=== PATIENT | female | born 1985 | race African-American/Black ===

== ENCOUNTER 2017-01-04 13:15 | Emergency (ER) | payer MEDICAID ==
[~2017-01-04] VITALS: Ht 152.4 cm; Wt 57.0 kg
[2017-01-04 19:05] VITALS: BP 121/85
== END 2017-01-04 19:20 | disposition home or self-care (01) ==
LOC: ER 14:31
DX: M79.652 Pain in left thigh (principal); B00.2 Herpesviral gingivostomatitis and pharyngotonsillitis; F17.200 Nicotine dependence, unspecified, uncomplicated; F20.9 Schizophrenia, unspecified; F41.9 Anxiety disorder, unspecified; J45.909 Unspecified asthma, uncomplicated; I10 Essential (primary) hypertension
CPT/HCPCS: 93971; 99284; Z7610

== ENCOUNTER 2017-07-21 22:26 | Emergency (ER) | payer MEDICAID ==
[~2017-07-21] VITALS: Ht 152.4 cm; Wt 69.0 kg
[2017-07-22] MEDS ORDERED: DIPHENHYDRAMINE 25MG CAPSULE PO ONE (02:45)
[2017-07-22] MEDS ORDERED: METHYLPREDNISOLONE SOD SUCC 125 MG/2 ML VIAL IM ONE (02:45)
[2017-07-22 04:18] VITALS: BP 126/70
== END 2017-07-22 04:28 | disposition home or self-care (01) ==
LOC: ER 07-22 00:44
DX: L50.8 Other urticaria (principal); J45.909 Unspecified asthma, uncomplicated; F12.10 Cannabis abuse, uncomplicated
CPT/HCPCS: 96372; 99283; J2930; Q0163

== ENCOUNTER 2020-07-27 11:13 | Emergency (ER) | payer MEDICAID ==
[~2020-07-27] VITALS: Ht 152.4 cm; Wt 65.0 kg
[2020-07-27] MEDS ORDERED: KETOROLAC 30MG/ML VIAL IV ONE (12:00)
[2020-07-27 12:17] LABS: CLARITY URINE CLEAR (CLEAR); COLOR URINE DARK YELLOW (YELLOW); KETONES URINE TRACE (NEGATIVE); LEUKOCYTE ESTERASE URINE NEGATIVE (NEGATIVE); NITRITE URINE NEGATIVE (NEGATIVE); OCCULT BLOOD URINE NEGATIVE (NEGATIVE); PH URINE 5.5 (4.5-8.0); PROTEIN URINE NEGATIVE (NEGATIVE); SPECIFIC GRAVITY URINE 1.028 (1.005-1.030); UROBILINOGEN URINE 0.2 E.U./dL (0.2-1.0)
[2020-07-27 12:21] LABS: CHLORIDE 107 mEq/L (98-107)
[2020-07-27 12:28] LABS: BASOPHILS % 0.4 % (0.0-2.0); EOSINOPHILS % 0.9 % (0.0-5.0); HEMATOCRIT. 37.8 % (36.0-48.0); HEMOGLOBIN. 13.2 g/dL (12.0-16.0); LYMPHOCYTES % 23.8 % (20.0-50.0); MEAN CORPUSCULAR HEMOGLOBIN 30.6 pg (28.0-32.0); MEAN CORPUSCULAR VOLUME 87.9 fL (81.0-99.0); MEAN PLATELET VOLUME 7.1 fl (7.4-10.4); MONOCYTES % 7.5 % (2.0-8.0); NEUTROPHILS % 67.4 % (40.0-76.0); PLATELET 410 x1000/uL (130-400); RED CELL DISTRIBUTION WIDTH 13.2 % (11.6-14.6)
[2020-07-27 12:34] LABS: B-HCG QUANTITATIVE < 1 mIU/mL (<3)
[2020-07-27] MEDS ORDERED: IBUP-2029 MT (15:17)
[2020-07-27 15:25] VITALS: BP 109/91
[2020-07-27] MEDS ORDERED: IBUPROFEN 400MG TABLET PO NR (15:30)
== END 2020-07-27 15:29 | disposition home or self-care (01) ==
LOC: ER 11:13
DX: N83.202 Unspecified ovarian cyst, left side (principal); D25.9 Leiomyoma of uterus, unspecified; J45.909 Unspecified asthma, uncomplicated; F31.9 Bipolar disorder, unspecified; F12.10 Cannabis abuse, uncomplicated
CPT/HCPCS: 36415; 74176; 76830; 76856; 80053; 81003; 84702; 85025; 96374; 99285; J1885; Z7610